=== PATIENT | female | born 1950 ===

== ENCOUNTER 2017-07-06 22:37 | Observation (INO) | payer MEDICARE, MEDICAID ==
[2017-07-06] MEDS ORDERED: Magnesium Sulfate 2 gm/50 ml 2 GM/50 ML BAG IV STA (22:48)
[2017-07-06] MEDS ORDERED: Albuterol-Ipratrop 3 mg / 0.5 (3 ml) UD INH STA ×2 (22:49)
--- NOTE | 2017-07-06 23:13 | ED PDOC ---
HPI: SOB/CHF/COPD Time Seen by Provider: 07/06/17 22:40 Chief Complaint (Nursing): Shortness Of Breath Chief Complaint (Provider): Shortness Of Breath History Per: Patient, EMS, Family History/Exam Limitations: no limitations Current Symptoms Are (Timing): Better Additional Complaint(s): Charlene Longo is a 67 year old female with a history of diabetes, hypertension, asthma, and high cholesterol who was visiting her daughter from [place]. Daughter states that yesterday patient had a hypoglycemic episode and syncoped, and recovered with glucose. today, a half hour prior to arrival to ED , patient was taking a bath when she screamed for her daughter. Daughter reports that she came into the room and the patient was about to faint, and had difficulty breathing. Patient was in moderate respiratory distress and was hypertensive. EMS noted that patient significantly improved after two Duonebs and 125 mg Solumedrol. Patient is currently stating that she feels better but is still complaining of chest pain and shortness of breath. Past Medical History Reviewed: Historical Data, Nursing Documentation, Vital Signs Vital Signs: Last Vital Signs Temp 97.4 F L 07/06/17 22:38 Pulse 67 07/06/17 22:38 Resp 18 07/06/17 22:38 BP 189/111 H 07/06/17 22:38 Pulse Ox 100 07/06/17 23:16 - Medical History PMH: Asthma, Diabetes, HTN, Hypercholesterolemia - Family History Family History: States: Unknown Family Hx - Allergies Allergies/Adverse Reactions: Allergies Allergy/AdvReac Type Severity Reaction Status Date / Time No Known Allergies Allergy Verified 07/06/17 22:38 Review of Systems Cardiovascular: Positive for: Chest Pain Respiratory: Positive for: Shortness of Breath Physical Exam - Reviewed Nursing Documentation Reviewed: Yes Vital Signs Reviewed: Yes - Physical Exam Appears: Positive for: Non-toxic, No Acute Distress Head Exam: Positive for: ATRAUMATIC, NORMOCEPHALIC Skin: Positive for: Normal Color, Warm Eye Exam: Positive for: Normal appearance, EOMI, PERRL Cardiovascular/Chest: Positive for: Regular Rate, Rhythm. Negative for: Murmur Respiratory: Positive for: Decreased Breath Sounds (b/l), Accessory Muscle Use ( Mild), Wheezing (end expiratory wheezing), Respiratory Distress (Moderate). Negative for: Normal Breath Sounds Gastrointestinal/Abdominal: Positive for: Normal Exam, Soft. Negative for: Tenderness Back: Positive for: Normal Inspection. Negative for: L CVA Tenderness, R CVA Tenderness Extremity: Positive for: Normal ROM, Pedal Edema (1+ pitting edema in the legs) Neurologic/Psych: Positive for: Alert, Oriented. Negative for: Motor/Sensory Deficits - Laboratory Results Result Diagrams: 07/06/17 23:26 07/06/17 23:26 - ECG O2 Sat by Pulse Oximetry: 100 (RA) Pulse Ox Interpretation: Normal Medical Decision Making Medical Decision Making: Impression: Asthma Exacerbation Plan: * Chest X-Ray * EKG * CBC * BNP * BMP * Troponin * Blood Culture * Urinalysis * Flu Swab * Duoneb 6 ml INH * Magnesium Sulfate 2 gm/50 mL IV * Reevaluation 0030 Pt. breathing has improved, however still wheezing. BP improved significantly. Give age, risk factors, and that patient is having synocopal and prescyncopal episodes, will admit in obs for serial troponins, continuous nebulizers, and re- evaluation in AM. Case discussed with Gabriel Glez NP Scribe Attestation: Documented by Zeenat Short, acting as a scribe for Nithin Carter MD. Provider Scribe Attestation: All medical record entries made by the Scribe were at my direction and personally dictated by me. I have reviewed the chart and agree that the record accurately reflects my personal performance of the history, physical exam, medical decision making, and the department course for this patient. I have also personally directed, reviewed, and agree with the discharge instructions and disposition. Disposition - Clinical Impression Clinical Impression: COPD (chronic obstructive pulmonary disease), Pre-syncope - Disposition Disposition Time: 00:41 Condition: IMPROVED Forms: [employer] (Croatian)
[2017-07-06] MEDS ORDERED: Magnesium Sulfate 2 gm/50 ml 2 GM/50 ML BAG ONE (23:33)
[2017-07-06] MEDS ORDERED: Albuterol-Ipratrop 3 mg / 0.5 (3 ml) UD ONE (23:33)
[2017-07-06 23:44] LABS: ABG ALLEN TEST YES; ARTERIAL BLOOD GAS PH 7.44 (7.35-7.45); ARTERIAL BLOOD GAS PO2 64 mm/Hg (80-100)
[2017-07-06 23:53] LABS: BASO # 0.1 K/uL (0.0-0.2); BASO % 0.7 % (0.0-2.0); EOS # 0.2 K/uL (0.0-0.7); EOS % 1.8 % (0.0-4.0); LYMPH # 2.2 K/uL (1.0-4.3); LYMPH % 26.9 % (20.0-40.0); MEAN CELL VOLUME 83.5 fl (81.0-99.0); MEAN CORPUSCULAR HGB CONC 32.4 g/dL (33.0-37.0); MEAN PLATELET VOLUME 9.8 fl (7.2-11.7); MONO # 0.5 K/uL (0.0-0.8); MONO % 6.1 % (0.0-10.0); NEUT # 5.3 K/uL (1.8-7.0); NEUT % 64.5 % (50.0-75.0); RED CELL DISTRIBUTION WIDTH 16.1 % (11.5-14.5); WHITE BLOOD COUNT 8.2 K/uL (4.8-10.8)
[2017-07-07 00:06] LABS: BLOOD UREA NITROGEN 15 mg/dl (7-17); CALCIUM 9.3 mg/dL (8.4-10.2); CARBON DIOXIDE 31 mmol/L (22-30); CHLORIDE 103 mmol/L (98-107); GFR AFRICAN-AMERICAN > 60; GLUCOSE,RANDOM 171 mg/dL (65-105); POTASSIUM 3.3 MMOL/L (3.6-5.0); SODIUM 144 mmol/l (132-148)
[2017-07-07] MEDS ORDERED: Metoprolol 1 mg/ml Inj IVP STA (00:29)
[2017-07-07] MEDS ORDERED: Albuterol-Ipratrop 3 mg / 0.5 (3 ml) UD INH PRN (00:37)
[2017-07-07] MEDS ORDERED: Azithromycin 500 MG in Sodium Chloride 0.9% 250 ML IVPB STA (00:43)
[2017-07-07] MEDS ORDERED: Aspirin 325 mg EC Tablets PO STA (01:38)
[2017-07-07 03:17] VITALS: RESP 18
[2017-07-07 07:00] LABS: BASO % 0.1 % (0.0-2.0); EOS % 0.1 % (0.0-4.0); HEMATOCRIT 40.1 % (34.0-47.0); LYMPH # 0.6 K/uL (1.0-4.3); LYMPH % 8.2 % (20.0-40.0); MEAN CELL VOLUME 83.8 fl (81.0-99.0); MEAN CORPUSCULAR HEMOGLOBIN 26.8 pg (27.0-31.0); MEAN PLATELET VOLUME 9.7 fl (7.2-11.7); MONO # 0.1 K/uL (0.0-0.8); MONO % 1.1 % (0.0-10.0); NEUT % 90.5 % (50.0-75.0); NRBC % 0.1 % (0.0-0.0); PLATELET COUNT 187 K/uL (130-400); RED CELL DISTRIBUTION WIDTH 15.9 % (11.5-14.5); WHITE BLOOD COUNT 7.7 K/uL (4.8-10.8)
[2017-07-07 07:02] LABS: ALB/GLOB RATIO 1.2 (1.0-2.1); ALKALINE PHOSPHATASE 108 U/L (38-126); ALT/SGPT 30 U/L (9-52); AST/SGOT 18 U/L (14-36); BILIRUBIN,TOTAL 0.5 mg/dl (0.2-1.3); BLOOD UREA NITROGEN 16 mg/dl (7-17); CALCIUM 8.9 mg/dL (8.4-10.2); CARBON DIOXIDE 28 mmol/L (22-30); CHLORIDE 101 mmol/L (98-107); GFR AFRICAN-AMERICAN > 60; GLUCOSE,RANDOM 307 mg/dL (65-105); POTASSIUM 4.3 MMOL/L (3.6-5.0); SODIUM 142 mmol/l (132-148); TOTAL PROTEIN 7.3 G/DL (6.3-8.2)
--- NOTE | 2017-07-07 08:06 | CP.PCM.HP ---
History of Present Illness - History of Present Illness History of Present Illness: pt admitted for dyspnea and syncope/presyncope. at [facility] offers no comlaints. 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 no f/c, n/v/d. bw noted. cxr final report pending. trops negative. cardio consult pending. pt comfortable at present. pt rec'd albuterol and steroids in filed by als Present on Admission - Present on Admission Any Indicators Present on Admission: Yes History of Uncontrolled Diabetes: Yes Review of Systems - Cardiovascular Cardiovascular: As Per HPI, Chest Pain, Leg Edema - Respiratory Respiratory: As Per HPI, Cough, Chest Congestion - Neurological Neurological: As Per HPI, Syncope Past Patient History - Past Medical History & Family History Past Medical History?: Yes - Past Social History Smoking Status: Never Smoked - CARDIAC Hx Cardiac Disorders: Yes - PULMONARY Hx Respiratory Disorders: Yes - NEUROLOGICAL Hx Neurological Disorder: No - HEENT Hx HEENT Problems: No - RENAL Hx Chronic Kidney Disease: No - ENDOCRINE/METABOLIC Hx Endocrine Disorders: Yes - HEMATOLOGICAL/ONCOLOGICAL Hx Blood Disorders: No - INTEGUMENTARY Hx Dermatological Problems: No - MUSCULOSKELETAL/RHEUMATOLOGICAL Hx Musculoskeletal Disorders: Yes - GASTROINTESTINAL Hx Gastrointestinal Disorders: No - GENITOURINARY/GYNECOLOGICAL Hx Genitourinary Disorders: No - PSYCHIATRIC Hx Psychophysiologic Disorder: No - SURGICAL HISTORY Hx Surgeries: Yes Hx Cataract Extraction: Yes (BILATERAL) Hx Cardiac Catheterization: Yes Hx Cholecystectomy: Yes - ANESTHESIA Hx Anesthesia: Yes Hx Anesthesia Reactions: No Hx Malignant Hyperthermia: No Meds Allergies/Adverse Reactions: Allergies Allergy/AdvReac Type Severity Reaction Status Date / Time No Known Allergies Allergy Verified 07/06/17 22:38 Physical Exam - Constitutional Appears: Well, Non-toxic, No Acute Distress - Head Exam Head Exam: ATRAUMATIC, NORMAL INSPECTION, NORMOCEPHALIC - Eye Exam Eye Exam: EOMI, Normal appearance, PERRL Pupil Exam: NORMAL ACCOMODATION, PERRL - ENT Exam ENT Exam: Mucous Membranes Moist, Normal Exam - Neck Exam Neck exam: Positive for: Normal Inspection - Respiratory Exam Respiratory Exam: Clear to Auscultation Bilateral, NORMAL BREATHING PATTERN - Cardiovascular Exam Cardiovascular Exam: REGULAR RHYTHM, RRR, +S1, +S2 - GI/Abdominal Exam GI & Abdominal Exam: Normal Bowel Sounds, Soft. absent: Tenderness - Extremities Exam Extremities exam: Positive for: normal inspection - Back Exam Back exam: NORMAL INSPECTION - Neurological Exam Neurological exam: Alert, CN II-XII Intact, Normal Gait, Oriented x3, Reflexes Normal - Psychiatric Exam Psychiatric exam: Normal Affect, Normal Mood - Skin Skin Exam: Dry, Intact, Normal Color, Warm Results - Vital Signs Recent Vital Signs: Last Vital Signs Temp 98 F 07/07/17 07:54 Pulse 60 07/07/17 07:54 Resp 18 07/07/17 07:54 BP 164/58 H 07/07/17 07:54 Pulse Ox 100 07/07/17 07:54 - Labs Result Diagrams: 07/07/17 06:35 07/07/17 06:35 Labs: Laboratory Results - last 24 hr 07/06/17 07/06/17 07/06/17 22:55 23:26 23:26 WBC 8.2 RBC 4.79 Hgb 13.0 Hct 40.0 MCV 83.5 MCH 27.0 MCHC 32.4 L RDW 16.1 H Plt Count 184 MPV 9.8 Neut % (Auto) 64.5 Lymph % (Auto) 26.9 [place] % (Auto) 6.1 Eos % (Auto) 1.8 Baso % (Auto) 0.7 Neut # 5.3 Lymph # 2.2 [place] # 0.5 Eos # 0.2 Baso # 0.1 pCO2 pO2 HCO3 ABG pH ABG Total CO2 ABG O2 Saturation ABG Base Excess Juan Test ABG Potassium A-a O2 Difference Glucose Lactate FiO2 Sodium 144 Potassium 3.3 L Chloride 103 Carbon Dioxide 31 H Anion Gap 13 BUN 15 Creatinine 0.7 Est GFR ( Amer) > 60 Est GFR (Non-Af Amer) > 60 POC Glucose (mg/dL) 144 H Random Glucose 171 H Calcium 9.3 Total Bilirubin AST ALT Alkaline Phosphatase Troponin I 0.0260 NT-Pro-B Natriuret Pep 311 Total Protein Albumin Globulin Albumin/Globulin Ratio Arterial Blood Potassium Influenza Typ A,B (EIA) 07/06/17 07/06/17 07/07/17 23:26 23:40 05:16 WBC RBC Hgb Hct MCV MCH MCHC RDW Plt Count MPV Neut % (Auto) Lymph % (Auto) [place] % (Auto) Eos % (Auto) Baso % (Auto) Neut # Lymph # [place] # Eos # Baso # pCO2 47 H pO2 64 L HCO3 30.0 H ABG pH 7.44 ABG Total CO2 33.3 H ABG O2 Saturation 96.5 ABG Base Excess 6.6 H Juan Test Yes ABG Potassium 3.3 L A-a O2 Difference 27.0 Glucose 197 H Lactate 1.4 FiO2 21.0 Sodium 139.0 Potassium Chloride 106.0 Carbon Dioxide Anion Gap BUN Creatinine Est GFR ( Amer) Est GFR (Non-Af Amer) POC Glucose (mg/dL) 282 H Random Glucose Calcium Total Bilirubin AST ALT Alkaline Phosphatase Troponin I NT-Pro-B Natriuret Pep Total Protein Albumin Globulin Albumin/Globulin Ratio Arterial Blood Potassium 3.3 L Influenza Typ A,B (EIA) Negative for flu a/b 07/07/17 07/07/17 06:35 06:35 WBC 7.7 RBC 4.79 Hgb 12.8 Hct 40.1 MCV 83.8 MCH 26.8 L MCHC 32.0 L RDW 15.9 H Plt Count 187 MPV 9.7 Neut % (Auto) 90.5 H Lymph % (Auto) 8.2 L [place] % (Auto) 1.1 Eos % (Auto) 0.1 Baso % (Auto) 0.1 Neut # 7.0 Lymph # 0.6 L [place] # 0.1 Eos # 0.0 Baso # 0.0 pCO2 pO2 HCO3 ABG pH ABG Total CO2 ABG O2 Saturation ABG Base Excess Juan Test ABG Potassium A-a O2 Difference Glucose Lactate FiO2 Sodium 142 Potassium 4.3 Chloride 101 Carbon Dioxide 28 Anion Gap 17 BUN 16 Creatinine 0.7 Est GFR ( Amer) > 60 Est GFR (Non-Af Amer) > 60 POC Glucose (mg/dL) Random Glucose 307 H Calcium 8.9 Total Bilirubin 0.5 AST 18 ALT 30 Alkaline Phosphatase 108 Troponin I NT-Pro-B Natriuret Pep Total Protein 7.3 Albumin 4.0 Globulin 3.4 Albumin/Globulin Ratio 1.2 Arterial Blood Potassium Influenza Typ A,B (EIA) Assessment & Plan (1) Asthma exacerbation Assessment and Plan: duonebs steroids supportive care Status: Acute (2) DVT prophylaxis Assessment and Plan: scd and ae hose lovenox if admitted over 24h Status: Acute (3) Pre-syncope Assessment and Plan: cardio trops Status: Acute Decision To Admit - Pt Status Changed To: Hospital Disposition Of: Observation - . Bed Request Type: Telemetry Admitting Physician: Sheila Wagner
[2017-07-07 08:24] LABS: NEUTROPHIL 89 % (42-75); REACTIVE LYMPHOCYTES 1 % (0-0); TOTAL CELLS COUNTED 100
[2017-07-07 08:25] LABS: LARGE PLATELETS PRESENT
[2017-07-07] MEDS ORDERED: Pravastatin Sodium 40 MG TAB PO SCH (09:00)
[2017-07-07] MEDS ORDERED: Patient's Own Med (Valsartan/Hydrochlorothiazide [Valsartan-Hctz 320-25 Mg Tab] 1 TAB) PO SCH (09:00)
[2017-07-07] MEDS ORDERED: Azithromycin 500 MG in Sodium Chloride 0.9% 250 ML IVPB SCH (09:00)
[2017-07-07] MEDS ORDERED: Pantoprazole 40 mg EC Tab PO SCH (09:00)
[2017-07-07] MEDS ORDERED: Metoprolol Succinate 100 mg XL Tab PO SCH (09:00)
[2017-07-07] MEDS ORDERED: Insulin Lispro Mix 75/25 100 units/ml (HumaLog) 10ml SC SCH (09:00)
[2017-07-07] MEDS ORDERED: NIFEdipine 60 mg ER Tab PO SCH (09:00)
[2017-07-07] MEDS ORDERED: FLUTICASONE PROPIONATE INH SCH (09:00)
--- NOTE | 2017-07-07 09:03 | RAD ---
PROCEDURE: CHEST RADIOGRAPH, 1 VIEW HISTORY: sob, cp COMPARISON: None available. FINDINGS: LUNGS: Clear. PLEURA: No pneumothorax or pleural fluid seen. CARDIOVASCULAR: Cardiomegaly. No evidence of acute, significant cardiovascular disease. OSSEOUS STRUCTURES: No significant abnormalities. VISUALIZED UPPER ABDOMEN: Normal. OTHER FINDINGS: None. IMPRESSION: No active disease.
[2017-07-07 12:09] VITALS: BP 149/70; PULSE 61; TEMP 98.3; O2SAT 96
--- NOTE | 2017-07-07 12:51 | CP.PCM.CON ---
History of Present Illness - History of Present Illness History of Present Illness: I was asked to see patient by Dr Glez. Patient is a 67 year old male with PMH HTN, DM, hypercholesterolemia who presents with chest pain. The patient describes chest pain which occurred at rest. She states she has chest discomfort. She has dyspnea at times. Symptoms improve with rest. Review of Systems - Constitutional Constitutional: absent: As Per HPI, Anorexia, Chills, Daytime Sleepiness, Excessive Sweating, Fatigue, Fever, Frequent Falls, Headache, Increased Appetite , Lethargy, Malaise, Night Sweats, Snoring, Sleep Apnea, Weight Gain, Weight Loss, Weakness, Other - EENT Eyes: absent: As Per HPI, Blind Spots, Blurred Vision, Change in Vision, Decreased Night Vision, Diplopia, Discharge, Dry Eye, Exophthalmos, Floaters, Irritation, Itchy Eyes, Loss of Peripheral Vision, Pain, Photophobia, Requires Corrective Lenses, Sees Flashes, Spots in Vision, Tunnel Vision, Other Visual Disturbances, Loss of Vision, Other Ears: absent: As Per HPI, Decreased Hearing, Ear Discharge, Ear Pain, Tinnitus, Abnormal Hearing, Disequilibrium, Dizziness, Other Nose/Mouth/Throat: absent: As Per HPI, Epistaxis, Nasal Congestion, Nasal Discharge, Nasal Obstruction, Nasal Trauma, Nose Pain, Post Nasal Drip, Sinus Pain, Sinus Pressure, Bleeding Gums, Change in Voice, Dental Pain, Dry Mouth, Dysphagia, Halitosis, Hoarsness, Lip Swelling, Mouth Lesions, Mouth Pain, Odynophagia, Sore Throat, Throat Swelling, Tongue Swelling, Facial Pain, Neck Pain, Neck Mass, Other - Cardiovascular Cardiovascular: Chest Pain - Respiratory Respiratory: Dyspnea. absent: As Per HPI, Cough, Hemoptysis, Dyspnea on Exertion, Wheezing, Snoring, Stridor, Pain on Inspiration, Chest Congestion, Excessive Mucous Production, Change in Mucous Color, Pain with Coughing, Other - Gastrointestinal Gastrointestinal: absent: As Per HPI, Abdominal Pain, Belching, Bloating, Change in Bowel Habits, Change in Stool Character, Coffee Ground Emesis, Constipation, Cramping, Diarrhea, Dyspepsia, Dysphagia, Early Satiety, Excessive Flatus, Fecal Incontinence, Heartburn, Hematemesis, Hematochezia, Loose Stools, Melena, Nausea, Odynophagia, Temesmus, Vomiting, Other - Genitourinary Genitourinary: absent: As Per HPI, Change in Urinary Stream, Difficulty Urinating, Dysuria, Flank Pain, Hematuria, Pyuria, Nocturia, Urinary Incontinence, Urinary Frequency, Urinary Hesitance, Urinary Urgency, Voiding Freq/Small Amts, Freq UTI, Hx Renal/Bladder Calculi, Hx /Renal Surgery, Bladder Distension, Other - Musculoskeletal Musculoskeletal: absent: As Per HPI, Abnormal Gait, Arthralgias, Atrophy, Back Pain, Deformity, Joint Swelling, Limited Range of Motion, Loss of Height, Muscle Cramps, Muscle Weakness, Myalgias, Neck Pain, Numbness, Radiating Pain into Limb, Stiffness, Tingling, Other - Integumentary Integumentary: absent: As Per HPI, Acne, Alopecia, Bleeding Lesions, Change in Hair, Change in Nails, Change in Pigmentation, Changing Lesions, Dry Skin, Erythema, Furuncle, Hirsutism, Lesions, New Lesions, Non-Healing Lesions, Photosensitivity, Pruritus, Rash, Skin Pain, Skin Ulcer, Sores, Striae, Swelling , Unusual Bruising, Wounds, Jaundice, Other - Neurological Neurological: absent: As Per HPI, Abnormal Gait, Abnormal Hearing, Abnormal Movements, Abnormal Speech, Behavioral Changes, Burning Sensations, Confusion, Convulsions, Disequilibrium, Dizziness, Numbness, Focal Weakness, Frequent Falls , Headaches, Lack of Coordination, Loss of Vision, Memory Loss, Paresthesias, Radicular Pain, Restless Legs, Sensory Deficit, Syncope, Tingling, Tremor, Vertigo, Weakness, Other Visual Disturbances, Other - Psychiatric Psychiatric: absent: As Per HPI, Abnormal Sleep Pattern, Anhedonia, Anxiety, Auditory Hallucinations, Behavioral Changes, Change in Appetite, Change in Libido, Confusion, Depression, Difficulty Concentrating, Hallucinations, Homicidal Ideation, Hopelessness, Irritability, Memory Loss, Mood Swings, Panic Attacks, Paranoia, Suicidal Ideation, Visual Hallucinations, Tactile Hallucinations, Other - Endocrine Endocrine: absent: As Per HPI, Change in Body Appearance, Change in Libido, Cold Intolorance, Deepening of Voice, Excessive Sweating, Fatigue, Flushing, Heat Intolorance, Increase in Ring/Shoe/Hat Size, Palpitations, Polydipsia, Polyphagia, Polyuria, Other - Hematologic/Lymphatic Hematologic: absent: As Per HPI, Easy Bleeding, Easy Bruising, Lymphadenopathy, Other Past Patient History - Past Medical History & Family History Past Medical History?: Yes - Past Social History Smoking Status: Never Smoked - CARDIAC Hx Cardiac Disorders: Yes - PULMONARY Hx Respiratory Disorders: Yes - NEUROLOGICAL Hx Neurological Disorder: No - HEENT Hx HEENT Problems: No - RENAL Hx Chronic Kidney Disease: No - ENDOCRINE/METABOLIC Hx Endocrine Disorders: Yes - HEMATOLOGICAL/ONCOLOGICAL Hx Blood Disorders: No - INTEGUMENTARY Hx Dermatological Problems: No - MUSCULOSKELETAL/RHEUMATOLOGICAL Hx Musculoskeletal Disorders: Yes - GASTROINTESTINAL Hx Gastrointestinal Disorders: No - GENITOURINARY/GYNECOLOGICAL Hx Genitourinary Disorders: No - PSYCHIATRIC Hx Psychophysiologic Disorder: No - SURGICAL HISTORY Hx Surgeries: Yes Hx Cataract Extraction: Yes (BILATERAL) Hx Cardiac Catheterization: Yes Hx Cholecystectomy: Yes - ANESTHESIA Hx Anesthesia: Yes Hx Anesthesia Reactions: No Hx Malignant Hyperthermia: No Meds Allergies/Adverse Reactions: Allergies Allergy/AdvReac Type Severity Reaction Status Date / Time No Known Allergies Allergy Verified 07/06/17 22:38 - Medications Medications: Current Medications Albuterol/Ipratropium (Duoneb 3 Mg/0.5 Mg (3 Ml) Ud) 3 ml INH RQ4 PRN PRN Reason: Shortness of Breath Aspirin (Aspirin Chewable) 81 mg PO DAILY [facility] Last Admin: 07/07/17 09:00 Dose: 81 mg Home Med (Fluticasone Propionate [Flovent Hfa]) 2 puff INH BID [facility] Hydralazine HCl (Apresoline) 50 mg PO TID [facility] Last Admin: 07/07/17 12:13 Dose: 50 mg Hydrochlorothiazide (Hydrodiuril) 25 mg PO DAILY [facility] Last Admin: 07/07/17 09:00 Dose: 25 mg Azithromycin 500 mg/ Sodium (Chloride) 250 mls @ 250 mls/hr IVPB DAILY [facility] PRN Reason: Protocol Last Admin: 07/07/17 11:00 Dose: 250 mls/hr Insulin Lispro Protam/Lispro Human (Humalog Mix 75/25) 30 units SC BID [facility] Last Admin: 07/07/17 09:00 Dose: 30 units Metformin HCl (Glucophage) 1,000 mg PO BID [facility] Last Admin: 07/07/17 09:00 Dose: 1,000 mg Metoprolol Succinate (Toprol Xl) 100 mg PO DAILY [facility] Last Admin: 07/07/17 09:00 Dose: 100 mg Montelukast Sodium (Singulair) 10 mg PO [facility] Nifedipine (Procardia Xl) 60 mg PO BID [facility] Last Admin: 07/07/17 09:00 Dose: 60 mg Pantoprazole Sodium (Protonix Ec Tab) 40 mg PO DAILY [facility] Last Admin: 07/07/17 10:02 Dose: 40 mg Pravastatin Sodium (Pravachol) 40 mg PO DAILY [facility] Last Admin: 07/07/17 09:00 Dose: 40 mg Prednisone (Prednisone Tab) 50 mg PO DAILY [facility] Last Admin: 07/07/17 09:00 Dose: 50 mg Valsartan (Diovan) 320 mg PO DAILY [facility] Last Admin: 07/07/17 11:30 Dose: 320 mg Physical Exam - Constitutional Appears: Non-toxic - Head Exam Head Exam: NORMAL INSPECTION - Eye Exam Eye Exam: Normal appearance - ENT Exam ENT Exam: Mucous Membranes Moist - Neck Exam Neck exam: Positive for: Full Rom - Respiratory Exam Respiratory Exam: NORMAL BREATHING PATTERN - Cardiovascular Exam Cardiovascular Exam: REGULAR RHYTHM - GI/Abdominal Exam GI & Abdominal Exam: Normal Bowel Sounds - Rectal Exam Rectal Exam: Deferred - Extremities Exam Extremities exam: Positive for: pedal edema - Back Exam Back exam: NORMAL INSPECTION - Neurological Exam Neurological exam: Alert, Oriented x3 - Psychiatric Exam Psychiatric exam: Normal Affect - Skin Skin Exam: Normal Color Results - Vital Signs Recent Vital Signs: Last Vital Signs Temp 98.3 F 07/07/17 12:04 Pulse 61 07/07/17 12:13 Resp 18 07/07/17 12:04 BP 149/70 07/07/17 12:13 Pulse Ox 96 07/07/17 12:04 - Labs Result Diagrams: 07/07/17 06:35 07/07/17 06:35 Labs: Laboratory Results - last 24 hr 07/06/17 07/06/17 07/06/17 22:55 23:26 23:26 WBC 8.2 RBC 4.79 Hgb 13.0 Hct 40.0 MCV 83.5 MCH 27.0 MCHC 32.4 L RDW 16.1 H Plt Count 184 MPV 9.8 Neut % (Auto) 64.5 Lymph % (Auto) 26.9 [place] % (Auto) 6.1 Eos % (Auto) 1.8 Baso % (Auto) 0.7 Neut # 5.3 Lymph # 2.2 [place] # 0.5 Eos # 0.2 Baso # 0.1 Neutrophils % (Manual) Lymphocytes % (Manual) Reactive Lymphs % Monocytes % (Manual) Platelet Estimate Large Platelets Anisocytosis (manual) pCO2 pO2 HCO3 ABG pH ABG Total CO2 ABG O2 Saturation ABG Base Excess Juan Test ABG Potassium A-a O2 Difference Glucose Lactate FiO2 Sodium 144 Potassium 3.3 L Chloride 103 Carbon Dioxide 31 H Anion Gap 13 BUN 15 Creatinine 0.7 Est GFR ( Amer) > 60 Est GFR (Non-Af Amer) > 60 POC Glucose (mg/dL) 144 H Random Glucose 171 H Calcium 9.3 Total Bilirubin AST ALT Alkaline Phosphatase Troponin I 0.0260 NT-Pro-B Natriuret Pep 311 Total Protein Albumin Globulin Albumin/Globulin Ratio Arterial Blood Potassium Influenza Typ A,B (EIA) 07/06/17 07/06/17 07/07/17 23:26 23:40 05:16 WBC RBC Hgb Hct MCV MCH MCHC RDW Plt Count MPV Neut % (Auto) Lymph % (Auto) [place] % (Auto) Eos % (Auto) Baso % (Auto) Neut # Lymph # [place] # Eos # Baso # Neutrophils % (Manual) Lymphocytes % (Manual) Reactive Lymphs % Monocytes % (Manual) Platelet Estimate Large Platelets Anisocytosis (manual) pCO2 47 H pO2 64 L HCO3 30.0 H ABG pH 7.44 ABG Total CO2 33.3 H ABG O2 Saturation 96.5 ABG Base Excess 6.6 H Juan Test Yes ABG Potassium 3.3 L A-a O2 Difference 27.0 Glucose 197 H Lactate 1.4 FiO2 21.0 Sodium 139.0 Potassium Chloride 106.0 Carbon Dioxide Anion Gap BUN Creatinine Est GFR ( Amer) Est GFR (Non-Af Amer) POC Glucose (mg/dL) 282 H Random Glucose Calcium Total Bilirubin AST ALT Alkaline Phosphatase Troponin I NT-Pro-B Natriuret Pep Total Protein Albumin Globulin Albumin/Globulin Ratio Arterial Blood Potassium 3.3 L Influenza Typ A,B (EIA) Negative for flu a/b 07/07/17 07/07/17 07/07/17 06:35 06:35 11:22 WBC 7.7 RBC 4.79 Hgb 12.8 Hct 40.1 MCV 83.8 MCH 26.8 L MCHC 32.0 L RDW 15.9 H Plt Count 187 MPV 9.7 Neut % (Auto) 90.5 H Lymph % (Auto) 8.2 L [place] % (Auto) 1.1 Eos % (Auto) 0.1 Baso % (Auto) 0.1 Neut # 7.0 Lymph # 0.6 L [place] # 0.1 Eos # 0.0 Baso # 0.0 Neutrophils % (Manual) 89 H Lymphocytes % (Manual) 9 L Reactive Lymphs % 1 H Monocytes % (Manual) 1 Platelet Estimate Normal Large Platelets Present Anisocytosis (manual) Slight pCO2 pO2 HCO3 ABG pH ABG Total CO2 ABG O2 Saturation ABG Base Excess Juan Test ABG Potassium A-a O2 Difference Glucose Lactate FiO2 Sodium 142 Potassium 4.3 Chloride 101 Carbon Dioxide 28 Anion Gap 17 BUN 16 Creatinine 0.7 Est GFR ( Amer) > 60 Est GFR (Non-Af Amer) > 60 POC Glucose (mg/dL) 299 H Random Glucose 307 H Calcium 8.9 Total Bilirubin 0.5 AST 18 ALT 30 Alkaline Phosphatase 108 Troponin I 0.0300 NT-Pro-B Natriuret Pep Total Protein 7.3 Albumin 4.0 Globulin 3.4 Albumin/Globulin Ratio 1.2 Arterial Blood Potassium Influenza Typ A,B (EIA) - EKG Data EKG Interpreted by: Myself EKG shows normal: Sinus rhythm Assessment & Plan (1) Chest pain Assessment and Plan: patient ruled out for myocardial infarction. She has no current symptoms. She will benefit from nuclear perfusion testing which can be performed as an outpatient. Status: Acute (2) HTN (hypertension) Assessment and Plan: blood pressure control Status: Acute (3) Diabetes Assessment and Plan: risk factor for CAD Status: Acute
[2017-07-07 14:38] LABS: RBC URINE < 1 /hpf (0-3); URINE BILIRUBIN NEGATIVE (NEGATIVE); URINE BLOOD NEGATIVE (NEGATIVE); URINE COLOR YELLOW (YELLOW); URINE GLUCOSE (UA) >=500 mg/dL (Normal); URINE KETONE NEGATIVE (NEGATIVE); URINE LEUKOCYTE ESTERASE NEG Leu/uL (Negative); URINE PROTEIN NEGATIVE (NEGATIVE); URINE UROBILINOGEN 0.2-1.0 mg/dL (0.2-1.0); WBC URINE 1 /hpf (0-5)
--- NOTE | 2017-07-07 15:11 | CP.PCM.DIS ---
Provider - Provider Date of Admission: 07/07/17 00:32 Attending physician: Sheila Wagner MD Time Spent in preparation of Discharge (in minutes): 15 Diagnosis - Discharge Diagnosis (1) Asthma exacerbation Status: Acute (2) DVT prophylaxis Status: Acute (3) Pre-syncope Status: Acute Hospital Course - Lab Results Lab Results: Most Recent Lab Values WBC 7.7 K/uL (4.8-10.8) 07/07/17 06:35 RBC 4.79 Mil/uL (3.80-5.20) 07/07/17 06:35 Hgb 12.8 g/dL (12.0-16.0) 07/07/17 06:35 Hct 40.1 % (34.0-47.0) 07/07/17 06:35 MCV 83.8 fl (81.0-99.0) 07/07/17 06:35 MCH 26.8 pg (27.0-31.0) L 07/07/17 06:35 MCHC 32.0 g/dL (33.0-37.0) L 07/07/17 06:35 RDW 15.9 % (11.5-14.5) H 07/07/17 06:35 Plt Count 187 K/uL (130-400) 07/07/17 06:35 MPV 9.7 fl (7.2-11.7) 07/07/17 06:35 Neut % (Auto) 90.5 % (50.0-75.0) H 07/07/17 06:35 Lymph % (Auto) 8.2 % (20.0-40.0) L 07/07/17 06:35 Armstrong % (Auto) 1.1 % (0.0-10.0) 07/07/17 06:35 Eos % (Auto) 0.1 % (0.0-4.0) 07/07/17 06:35 Baso % (Auto) 0.1 % (0.0-2.0) 07/07/17 06:35 Neut # 7.0 K/uL (1.8-7.0) 07/07/17 06:35 Lymph # 0.6 K/uL (1.0-4.3) L 07/07/17 06:35 Armstrong # 0.1 K/uL (0.0-0.8) 07/07/17 06:35 Eos # 0.0 K/uL (0.0-0.7) 07/07/17 06:35 Baso # 0.0 K/uL (0.0-0.2) 07/07/17 06:35 Neutrophils % (Manual) 89 % (42-75) H 07/07/17 06:35 Lymphocytes % (Manual) 9 % (20-50) L 07/07/17 06:35 Reactive Lymphs % 1 % (0-0) H 07/07/17 06:35 Monocytes % (Manual) 1 % (0-10) 07/07/17 06:35 Platelet Estimate Normal (NORMAL) 07/07/17 06:35 Large Platelets Present 07/07/17 06:35 Anisocytosis (manual) Slight 07/07/17 06:35 pCO2 47 mm/Hg (35-45) H 07/06/17 23:40 pO2 64 mm/Hg (80-100) L 07/06/17 23:40 HCO3 30.0 mmol/L (21-28) H 07/06/17 23:40 ABG pH 7.44 (7.35-7.45) 07/06/17 23:40 ABG Total CO2 33.3 mmol/L (22-28) H 07/06/17 23:40 ABG O2 Saturation 96.5 % (95-98) 07/06/17 23:40 ABG Base Excess 6.6 mmol/L (-2.0-3.0) H 07/06/17 23:40 Juan Test Yes 07/06/17 23:40 ABG Potassium 3.3 mmol/L (3.6-5.2) L 07/06/17 23:40 A-a O2 Difference 27.0 mm/Hg 07/06/17 23:40 Sodium 139.0 mmol/L (132-148) 07/06/17 23:40 Chloride 106.0 mmol/L (98-107) 07/06/17 23:40 Glucose 197 mg/dL (65-105) H 07/06/17 23:40 Lactate 1.4 mmol/L (0.7-2.1) 07/06/17 23:40 FiO2 21.0 % 07/06/17 23:40 Sodium 142 mmol/l (132-148) 07/07/17 06:35 Potassium 4.3 MMOL/L (3.6-5.0) 07/07/17 06:35 Chloride 101 mmol/L (98-107) 07/07/17 06:35 Carbon Dioxide 28 mmol/L (22-30) 07/07/17 06:35 Anion Gap 17 (10-20) 07/07/17 06:35 BUN 16 mg/dl (7-17) 07/07/17 06:35 Creatinine 0.7 mg/dl (0.7-1.2) 07/07/17 06:35 Est GFR ( Amer) > 60 07/07/17 06:35 Est GFR (Non-Af Amer) > 60 07/07/17 06:35 POC Glucose (mg/dL) 299 mg/dL (65-110) H 07/07/17 11:22 Random Glucose 307 mg/dL (65-105) H 07/07/17 06:35 Calcium 8.9 mg/dL (8.4-10.2) 07/07/17 06:35 Total Bilirubin 0.5 mg/dl (0.2-1.3) 07/07/17 06:35 AST 18 U/L (14-36) 07/07/17 06:35 ALT 30 U/L (9-52) 07/07/17 06:35 Alkaline Phosphatase 108 U/L (38-126) 07/07/17 06:35 Troponin I 0.0240 ng/mL (0.00-0.120) 07/07/17 13:17 NT-Pro-B Natriuret Pep 311 pg/ml (0-900) 07/06/17 23:26 Total Protein 7.3 G/DL (6.3-8.2) 07/07/17 06:35 Albumin 4.0 g/dL (3.5-5.0) 07/07/17 06:35 Globulin 3.4 gm/dL (2.2-3.9) 07/07/17 06:35 Albumin/Globulin Ratio 1.2 (1.0-2.1) 07/07/17 06:35 Arterial Blood Potassium 3.3 mmol/L (3.6-5.2) L 07/06/17 23:40 Urine Color Yellow (YELLOW) 07/07/17 14:31 Urine Clarity Clear (Clear) 07/07/17 14:31 Urine pH 7.0 (5.0-8.0) 07/07/17 14:31 Ur Specific [place] 1.018 (1.003-1.030) 07/07/17 14:31 Urine Protein Negative mg/dL (NEGATIVE) 07/07/17 14:31 Urine Glucose (UA) >=500 mg/dL (Normal) 07/07/17 14:31 Urine Ketones Negative mg/dL (NEGATIVE) 07/07/17 14:31 Urine Blood Negative (NEGATIVE) 07/07/17 14:31 Urine Nitrate Negative (NEGATIVE) 07/07/17 14:31 Urine Bilirubin Negative (NEGATIVE) 07/07/17 14:31 Urine Urobilinogen 0.2-1.0 mg/dL (0.2-1.0) 07/07/17 14:31 Ur Leukocyte Esterase Neg Josselyn/uL (Negative) 07/07/17 14:31 Urine RBC (Auto) < 1 /hpf (0-3) 07/07/17 14:31 Urine Microscopic WBC 1 /hpf (0-5) 07/07/17 14:31 Ur Squamous Epith Cells < 1 /hpf (0-5) 07/07/17 14:31 Influenza Typ A,B (EIA) Negative for flu a/b (NEGATIVE) 07/06/17 23:26 Discharge Exam - Head Exam Head Exam: NORMAL INSPECTION Discharge Plan - Discharge Medications Prescriptions: Albuterol/Ipratropium [Duoneb 3 mg/0.5 mg (3 ml) UD] 3 ml INH RQ4 PRN #100 neb PRN Reason: Shortness Of Breath Azithromycin [Zithromax] 250 mg PO DAILY #4 tab predniSONE [predniSONE Tab] 50 mg PO DAILY #3 tab - Follow Up Plan Condition: IMPROVED Disposition: HOME/ ROUTINE Instructions: Asthma (DC), Asthma (GEN) Additional Instructions: cleared for dc by cardio final dx-asthma exacerbation, near syncope, zpack and prednisone for pt. no distress, vs noted. f/u pmd in [place] 1-2 days, rted prn, med spe rmed rec
--- NOTE | 2017-07-07 17:46 | CARD ---
APPROVED REPORT EXAM: Two-dimensional and M-mode echocardiogram with Doppler and color Doppler. Other Information Quality : GoodRhythm : NSR INDICATION Chest Pain 2D DIMENSIONS IVSd1.11 (0.7-1.1cm)LVDd3.92 (3.9-5.9cm) LVOT Diameter1.91 (1.8-2.4cm)PWd1.20 (0.7-1.1cm) IVSs1.33 (0.8-1.2cm)LVDs3.95 (2.5-4.0cm) FS (%) 0.8 %PWs1.19 (0.8-1.2cm) LVEF (%)55.0 (>50%) M-Mode DIMENSIONS Left Atrium (MM)4.82 (2.5-4.0cm)IVSd1.15 (0.7-1.1cm) Aortic Root2.53 (2.2-3.7cm)LVDd5.32 (4.0-5.6cm) Aortic Cusp Exc.1.68 (1.5-2.0cm)PWd1.15 (0.7-1.1cm) IVSs1.47 cmFS (%) 31 % LVDs3.65 (2.0-3.8cm)PWs1.53 cm Mitral Valve MV E Kepnfvmi196.6cm/sMV DECEL [id number] A Kqibgevm520.3cm/s MV [id number]/A ratio0.9MVA (PHT)2.95cm2 TDI Lateral E' Peak V5.70cm/sMedial E' Peak V5.87cm/sE/Lateral E'19.6 E/Medial E'19.0 LEFT VENTRICLE The left ventricle is normal size. There is borderline concentric left ventricular hypertrophy. The left ventricular function is normal. The left ventricular ejection fraction is within the normal range. There is normal LV segmental wall motion. Transmitral Doppler flow pattern is Grade I-abnormal relaxation pattern. RIGHT VENTRICLE The right ventricle is normal size. There is normal right ventricular wall thickness. The right ventricular systolic function is normal. ATRIA The left atrium is mildly dilated. The right atrium size is normal. AORTIC VALVE The aortic valve is not well visualized. No aortic regurgitation is present. There is no aortic valvular stenosis. MITRAL VALVE The mitral valve is moderately thickened. There is no mitral valve stenosis. Mitral regurgitation is mild. TRICUSPID VALVE The tricuspid valve is normal in structure. There is no tricuspid valve regurgitation noted. PULMONIC VALVE The pulmonary valve is normal in structure. There is no pulmonic valvular regurgitation. GREAT VESSELS The aortic root is normal in size. The IVC is normal in size and collapses >50% with inspiration. PERICARDIAL EFFUSION There is a trace loculated anterior pericardial effusion. <Conclusion> The left ventricle is normal size. There is borderline concentric left ventricular hypertrophy. The left ventricular function is normal. The left ventricular ejection fraction is within the normal range. There is normal LV segmental wall motion. Transmitral Doppler flow pattern is Grade I-abnormal relaxation pattern. Mitral regurgitation is mild.
--- NOTE | 2017-07-07 19:01 | CARD ---
APPROVED REPORT EKG Measurement Heart [id number] <Conclusion> Normal sinus rhythm Incomplete left bundle branch block ST & T wave abnormality, consider anterior ischemia Abnormal ECG
== END 2017-07-07 14:32 | disposition home or self-care (01) ==
LOC: H.ER 22:37 → H.ERHOLD 07-07 00:32 → H.TEL 07-07 03:04
PROVIDERS: ADMIT Family Medicine; ATTEND Family Medicine
DX: J45.901 Unspecified asthma with (acute) exacerbation (principal); E11.9 Type 2 diabetes mellitus without complications; I10 Essential (primary) hypertension; E78.00 Pure hypercholesterolemia, unspecified; R55 Syncope and collapse
CPT/HCPCS: 36415; 36600; 71010; 80048; 80053; 81003; 82803; 82948; 83036; 83880; 84484; 85025; 87040; 87804; 93005; 93306; 94150; 94640; 99284; G0378; J0456